=== PATIENT | male | born 1985 | race Caucasian/White ===

== ENCOUNTER 2019-04-01 07:08 | Emergency (ER) | payer OTHER ==
[~2019-04-01 07:08] MED LIST: IBUP200T44 PO
[2019-04-01 07:18] VITALS: BP 144/75
[2019-04-01 07:54] LABS: ALBUMIN 3.9 g/dL (3.4-5.0); CALCIUM 9.3 mg/dL (8.5-10.1); CREATININE 1.6 mg/dL (0.7-1.3); GFR 50.7; POTASSIUM 4.4 mmol/L (3.5-5.1); TOTAL BILIRUBIN 0.5 mg/dL (0.2-1.0); TOTAL PROTEIN 7.8 g/dL (6.4-8.2)
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
== END 2019-04-01 07:26 | disposition home or self-care (01) ==
LOC: ER 07:08
DX: Z77.21 Contact with and (suspected) exposure to potentially hazardous body fluids (principal); Z88.0 Allergy status to penicillin; Z88.2 Allergy status to sulfonamides; Z88.8 Allergy status to other drugs, medicaments and biological substances
CPT/HCPCS: 36415; 80053; 86703; 86705; 86709; 86803; 87340; 99284